=== PATIENT | male | born 2000 | race Caucasian/White ===

== ENCOUNTER 2022-02-12 20:19 | Emergency (ER) | payer BC, SELFPAY ==
[2022-02-12 20:36] VITALS: BP 126/56; PULSE 71; RESP 16; TEMP 36.7; O2SAT 100
--- NOTE | 2022-02-12 21:53 | ED.GENADUL_ITS ---
Discharge Plan Disposition Patient Disposition: HOME Condition: Improving Discharge Details Clinical Impression: Laceration of finger of left hand Primary Care Provider: Unknown,Unknown ED Provider: Mendez Diggs Home Meds and New Rx's Prescriptions: No Action No Known Home Meds Discharge Instructions Instructions: Finger Laceration (ED) Additional Instructions: Watch for any signs of infection and return immediately to the emergency department if these occur. Otherwise keep dressing in place for the next 24-48 hours and then keep wound clean and dry. Return to the emergency department 10 days for suture removal. Stand Alone Forms: Work Release Referrals: Primary Care Provider [Outside] (As needed for reassessment) Discharge Data Discharge Date/Time-TO BE ENTERED AT DEPARTURE: 02/12/22 21:59 Medical Decision Making Uncomplicated left finger laceration to index finger. Patient states up-to-date on tetanus. no signs of nerve or tendon injury. Laceration length is 2.5 cm. 4 sutures simple interrupted 5-0 Prolene. Two-point discrimination and movement along with tendon exam are completely normal. Please see procedure note for wound repair. After discussion of diagnosis and plan of care patient has no further needs, questions, or concerns and states clear understanding to return to the emergency department for any worsening symptoms. This documentation was generated using [employer] dictation system, please disregard any oddities of phrase or misspellings. HPI General Mode of arrival: ambulatory . Date/Time Provider Initiated Documentation: 02/12/22 21:53 . Limitations to Documentation: no limitations . Information obtained by: patient, family and RN notes reviewed . History of Present Illness 21 year old M presents to the emergency department with the chief complaint of Left index finger laceration, described as moderate, with intensity rated at 5. Quality is described as sharp, and is localized to the left and upper extremity. Patient reports no radiation. Patient started experiencing this hour(s) (1) and it has been constant. No relieving factors improve symptom(s), No exacerbating factors reported . Patient notes no other symptoms.. Related Data Home Medications Medication Instructions Recorded Confirmed Unknown [No Known Home Meds] 02/12/22 02/12/22 Allergies Allergy/AdvReac Type Severity Reaction Status Date / Time No Known Allergies Allergy Unverified 02/12/22 20:41 General Stated Complaint: Laceration JOSE ANGEL: 4 Review of Systems Narrative: 6 systems reviewed and unremarkable except what is marked below. Musculoskeletal Musculoskeletal: Denies arthralgias, Denies limited range of motion, Denies numbness and Denies tingling Integumentary/Breasts Skin/Breast: Reports as per HPI Neurologic Neurologic: Denies numbness and Denies tingling PFSH All Active Problems (Updated 02/12/22 @ 21:55 by Mendez Diggs NP) Laceration of finger of left hand (Acute) Social History Smoking/Tobacco Use Status: Never Smoking risk assessment performed?: Yes Alcohol Intake: never Substance use type: does not use Exam Const General: cooperative and no acute distress Orientation: alert, awake and oriented x3 Limitations: mental status not altered Resp Effort & Inspection: normal respiratory effort and able to speak in complete sentences Cardio Rate: regular rate Rhythm: regular rhythm Pulses: radial pulses present and normal peripheral pulses Neuro General: patient alert, patient awake, patient oriented x3, gait normal, tone n ormal, moves all extremities, normal light touch, pain and propioception and no focal motor deficits Motor: no movement abnormalities noted Sensory Exam: no sensory deficits noted Extrem General: normal exam except as noted Left upper extremity: hand Details: normal capillary refill, neuromotor exam normal, neurosensory exam normal, tendon exam normal, tenderness Location: of the 2nd digit Location: at the proximal phalanx, normal ROM of fingers, no swelling and laceration 2nd digit palmar aspect proximal Details: linear, actively bleeding, involving subcutaneous tissue, with motor nerve function intact and with sensation intact; not contaminated Course Vital Signs Vital signs: Vital Signs Temperature 36.7 C 02/12/22 20:36 Pulse 71 02/12/22 20:36 Respiratory Rate 16 02/12/22 20:36 Blood Pressure 126/56 L 02/12/22 20:36 Pulse Oximetry 100 02/12/22 20:36 Temperature 36.7 C 02/12/22 20:36 Temperature Source Temporal Artery Scan 02/12/22 20:36 Pulse 71 02/12/22 20:36 Respiratory Rate 16 02/12/22 20:36 Respiratory Effort 02/12/22 20:36 Blood Pressure 126/56 L 02/12/22 20:36 Blood Pressure Position Sitting 02/12/22 20:36 Pulse Oximetry 100 02/12/22 20:36 Oxygen Delivery Method Room Air 02/12/22 20:36 Oxygen Flow Rate 0 02/12/22 20:36 Pain Level 3 02/12/22 20:36 Procedures Laceration Laceration 1: Site: hand Side (If applicable): left Size (cm): 2.5 Description: linear Depth: simple, single layer Local Anesthetic: Lidocaine 1% Amount of anesthesia used (mL): 3 Pre-repair: wound explored, irrigated extensively and deep structures intact Skin layer closed with: other (prolene) Size (cm): 5-0 Number of sutures: 4 Technique: simple, interrupted
== END 2022-02-12 21:59 | disposition home or self-care (01) ==
PROVIDERS: Emergency Provider Nurse Practitioner Family
DX: S61.211A Laceration without foreign body of left index finger without damage to nail, initial encounter (principal); X58.XXXA Exposure to other specified factors, initial encounter
CPT/HCPCS: 12001; 99281; 99282